=== PATIENT | male | born 1995 | race Caucasian/White ===

== ENCOUNTER 2021-06-18 17:54 | Emergency (ER) | payer OTHER ==
[~2021-06-18] VITALS: Ht 188 cm; Wt 105.0 kg
[2021-06-18 18:11] VITALS: BP 168/102
--- NOTE | 2021-06-18 18:45 | RAD ---
Exam: Left ankle 3 views INDICATION: Rolled playing soccer TECHNIQUE: Frontal, lateral and oblique views of the left ankle Comparisons: None FINDINGS: Soft tissue swelling surrounding the left ankle. Bone mineralization is normal. No acute or healed fr actures. Joint spaces are well-maintained. IMPRESSION: Soft tissue/stranding at the ankle without underlying osseous abnormality identified. Electronically signed by: Fabrice Benítez MD (06/18/2021 6:43 PM) VAL[facility]IE
--- NOTE | 2021-06-18 19:22 | PHYS DOC ---
Past History Past Surgical History: Other Additional Past Surgical Histo: right forearm, right knee (MOHAN TIM APRN) Alcohol Use: None (MOHAN TIM APRN) General Adult EDM: Chief Complaint: ANKLE PROBLEM HPI: HPI: Patient is a 26-year-old male who presents with left ankle pain. Patient states that he was playing soccer when he stepped on a ball and rolled his ankle. Ankle is swollen and pain is increased with bearing weight. Patient was given Tylenol prior to arrival. Rates pain 5/10. Denies health history. (MOHAN TIM APRN) Review of Systems: Review of Systems: Constitutional: Denies fever or chills Eyes: Denies change in visual acuity HENT: Denies nasal congestion or sore throat Respiratory: Denies cough or shortness of breath Cardiovascular: Denies chest pain or edema GI: Denies abdominal pain, nausea, vomiting, bloody stools or diarrhea : Denies dysuria Musculoskeletal: Reports left ankle pain Integument: Bruising to left foot Neurologic: Denies headache, focal weakness or sensory changes Endocrine: Denies polyuria or polydipsia Lymphatic: Denies swollen glands Psychiatric: Denies depression or anxiety (MOHAN TIM APRN) Current Medications: Current Meds: Current Medications Medications (Trade) Dose Ordered Sig/Marcus Start Time Stop Time Status Last Admin Dose Admin Acetaminophen/ Hydrocodone Bitart (Lortab 5/325) 1 tab 1X ONCE 06/18/21 19:30 06/18/21 19:31 06/18/21 19:04 1 TAB Ibuprofen (Motrin) 600 mg 1X ONCE 06/18/21 19:30 06/18/21 19:31 06/18/21 19:04 600 MG (MOHAN TIM APRN) Allergies: Allergies: Allergies Coded Allergies Type Severity Reaction Last Updated Verified No Known Drug Allergies 06/18/21 No (MOHAN TIM APRN) Physical Exam: PE: Constitutional: Well developed, well nourished, no acute distress, non-toxic appearance. [] HENT: Normocephalic, atraumatic, bilateral external ears normal, oropharynx moist, no oral exudates, nose normal. [] Eyes: PERRLA, EOMI, conjunctiva normal, no discharge. [] Neck: Normal range of motion, no tenderness, supple, no stridor. [] Cardiovascular:Heart rate regular rhythm, no murmur [] Lungs & Thorax: Bilateral breath sounds clear to auscultation [] Abdomen: Bowel sounds normal, soft, no tenderness, no masses, no pulsatile masses. [] Skin: Swelling to left foot Back: No tenderness, no CVA tenderness. [] Extremities: Left foot tenderness, ROM intact, edema, pedal pulses intact, cap refill less than 2 seconds. Neurologic: Alert and oriented X 3, normal motor function, normal sensory function, no focal deficits noted. [] Psychologic: Affect normal, judgement normal, mood normal. [] (MOHAN TIM APRN) Current Patient Data: Vital Signs: Vital Signs Date Time Temp Pulse Resp B/P (MAP) Pulse Ox O2 Delivery O2 Flow Rate FiO2 06/18/21 19:04 16 06/18/21 18:11 98.4 96 168/102 97 Room Air (MOHAN TIM APRN) EKG: EKG: [] (MOHAN TIM APRN) Radiology/Procedures: Radiology/Procedures: []Exam: Left ankle 3 views INDICATION: Rolled playing soccer TECHNIQUE: Frontal, lateral and oblique views of the left ankle Comparisons: None FINDINGS: Soft tissue swelling surrounding the left ankle. Bone mineralization is normal. No acute or healed fractures. Joint spaces are well-maintained. IMPRESSION: Soft tissue/stranding at the ankle without underlying osseous abnormality identified. Electronically signed by: Fabrice Benítez MD (06/18/2021 6:43 PM) [facility] (MOHAN TIM APRN) Heart Score: C/O Chest Pain: No Risk Factors: Risk Factors: DM, Current or recent (<one month) smoker, HTN, HLP, family history of CAD, obesity. Risk Scores: Score 0 - 3: 2.5% MACE over next 6 weeks - Discharge Home Score 4 - 6: 20.3% MACE over next 6 weeks - Admit for Clinical Observation Score 7 - 10: 72.7% MACE over next 6 weeks - Early Invasive Strategies (MOHAN TIM APRN) Course & Med Decision Making: Course & Med Decision Making Pertinent Labs and Imaging studies reviewed. (See chart for details) [] 26-year-old male presents with left ankle pain. Patient states that he rolled his ankle playing soccer. Patient has swelling to left ankle. Pedal pulses intact. Cap refill less than 2 seconds. Range of motion is intact. Unable to bear weight. Patient given Tylenol prior to arrival. Rating pain 5/10. Patient given hydrocodone 5/325. Left ankle x-rays negative for fracture. Patient instructed to take ibuprofen and Tylenol at home for discomfort. Rice instructions given. Patient given ankle brace and crutches. If pain continues, patient should follow up to have a repeat x-ray in a 1 week. (MOHAN TIM APRN) Giovanni Disclaimer: Giovanni Disclaimer: This electronic medical record was generated, in whole or in part, using a voice recognition dictation system. (MOHAN TIM APRN) Attending Co-Sign The patient was seen and interviewed as well as examined at the bedside. The chart was reviewed. The case was discussed. Agree with the plan of care. (JADIEL KOCH DO) Departure Departure: Impression: Primary Impression: Ankle sprain Qualified Codes: S93.492A - Sprain of other ligament of left ankle, initial encounter Disposition: HOME / SELF CARE / HOMELESS Condition: STABLE Referrals: PCP,NO (PCP) Patient Instructions: Ankle Sprain, [id number] Additional Instructions: You were seen in the emergency room for left-sided ankle pain. X-ray was negative for fracture. You were given 1, 5/325 hydrocodone while in the emergency room. Continue taking ibuprofen and Tylenol for discomfort. I am providing you with an ankle brace along with crutches. If pain continues, fo llow-up with PCP for possible repeat imaging in 1 week. EMERGENCY DEPARTMENT GENERAL DISCHARGE INSTRUCTIONS Thank you for coming to [facility] (ED) today and trusting us with you care. We trust that you had a positivie experience in our Emergency Department. If you wish to speak to the department management, you may call the director at [phone]. YOUR FOLLOW UP INSTRUCTIONS ARE FOLLOWS: 1. Do you have a private Doctor? If you do not have a private doctor, please ask for a resource list of physicians or clinics that may be able to assist you with follow up care. 2. The Emergency Physician has interpreted your x-rays. The X-Ray specialist will also review them. If there is a change in the findings, you will be notified in 48 hours when at all possible. 3. A lab test or culture has been done, your results will be reviewed and you will be notified if you need a change in treatment. ADDITIONAL INSTRUCTIONS AND INFORMATION: 1. Your care today has been supervised by a physician who is specially trained in emergency care. Many problems require more than one evaluation for a complete diagnosis and treatment. We recommend that you schedule your follow up appointment as recommended to ensure complete treatment of you illness or injury. If you are unable to obtain follow up care and continue to have a problem, or if your condition worsens, we recommend that you return to the ED. 2. We are not able to safely determine your condition over the phone nor are we able to give sound medical advice over the phone. For these safety reasons, if you call for medical advice we will ask you to come to the ED for further evaluation. 3. If you have any questions regarding these discharge instructions please call the ED at [phone]. SAFETY INFORMATION: In the interest of safety, wellness, and injury prevention; we encourage you to wear your sealbelt, if you smoke; quite smoking, and we encourage family to use a protective helmet for bicycling and other sporting events that present an increased risk for head injury. IF YOUR SYMPTOMS WORSEN OR NEW SYMPTOMS DEVELOP, OR YOU HAVE CONCERNS ABOUT YOUR CONDITION; OR IF YOUR CONDITION WORSENS WHILE YOU ARE WAITING FOR YOUR FOLLOW UP APPOINTMENT; EITHER CONTACT YOUR PRIMARY CARE DOCTOR, THE PHYSICIAN WHOSE NAME AND NUMBER YOU WERE GIVEN, OR RETURN TO THE ED IMMEDIATELY. MOHAN TIM APRN Jun 18, 2021 19:22 JADIEL KOCH DO Jun 19, 2021 13:30
[2021-06-18] MEDS ORDERED: HYDROcodone/APAP 5/325MG 1 TAB TABLET PO ONE (19:30)
[2021-06-18] MEDS ORDERED: IBUPROFEN 600 MG TABLET. PO ONE (19:30)
== END 2021-06-18 19:38 | disposition home or self-care (01) ==
LOC: ER 17:54
DX: S93.402A Sprain of unspecified ligament of left ankle, initial encounter (principal); W21.02XA Struck by soccer ball, initial encounter; Y93.66 Activity, soccer; Y92.39 Other specified sports and athletic area as the place of occurrence of the external cause; Y99.8 Other external cause status
CPT/HCPCS: 73610; 99283